=== PATIENT | male | born 1955 | race African-American/Black ===

== ENCOUNTER 2016-12-31 11:28 | Day surgery (SDC) | payer OTHER ==
[2016-12-28 16:23] VITALS: BMI 34.4
[~2016-12-31] VITALS: Ht 190.5 cm; Wt 106.0 kg
[2016-12-31] VITALS (11 sets, daily range): BP systolic 108–137; BP diastolic 71–82; PULSE 58–103; RESP 10–19; Ht 190.5 cm; Wt 106.0 kg
[~2016-12-31 11:28] MED LIST: CEFAZOLIN 2 GM/50 ML (PMX) 50 ML IVPB ONE; SOD CHLORIDE 0.9% 1,000 ML IV ONE
[2016-12-31] MEDS ORDERED: BUPIVACAINE 0.25% (MPF) 30 ML INJ ONE (13:44)
[2016-12-31] MEDS ORDERED: PROPOFOL 20 ML ONE (13:55)
[2016-12-31] MEDS ORDERED: MIDAZOLAM 1 MG/ML 2 ML INJ ONE (13:58)
[2016-12-31] MEDS ORDERED: FENTAnyl 50 MCG/ML VIAL ONE (13:58)
[2016-12-31] MEDS ORDERED: CEFAZOLIN 1 GM INJ ONE (14:00)
[2016-12-31] MEDS ORDERED: BUPIVACAINE 0.25% (MPF) 30 ML INJ INJ ONE (14:16)
--- NOTE | 2016-12-31 14:17 | RADRPT ---
PROCEDURE: XR Chest. CLINICAL INDICATION: Preoperative chest TECHNIQUE: Chest AP portable. COMPARISON: No comparison available. FINDINGS: The mediastinal structures are unremarkable. The heart is normal in size and configuration. The pu lmonary vascularity is normal. The lung toussaint are unremarkable. No consolidation is identified. The pleural spaces are unremarkable. The axial skeleton is unremarkable. IMPRESSION: No active intrathoracic disease. RPTAT: HGDB .Yuan Du MD, MD Date Time Electronically viewed and signed by .Yuan Du MD, MD on 12/31/2016 14:16 .B/
[2016-12-31] MEDS ORDERED: NEOMYC/POLYMYX/BACIT 30 GM OINT ONE (14:21)
[2016-12-31] MEDS ORDERED: ACETAMINOPHEN/CODEINE #3 TAB PO ONE (14:30)
[2016-12-31] MEDS ORDERED: MEPERIDINE 25 MG INJ IV PRN (15:00)
[2016-12-31] MEDS ORDERED: ONDANSETRON 4 MG INJ IV PRN (15:00)
[2016-12-31] MEDS ORDERED: DIPHENHYDRAMINE 50 MG INJ IV PRN (15:00)
[2016-12-31] MEDS ORDERED: METOCLOPRAMIDE 10 MG INJ IV PRN (15:00)
[2016-12-31] MEDS ORDERED: MIDAZOLAM 1 MG/ML 2 ML INJ IV PRN (15:00)
[2016-12-31] MEDS ORDERED: FENTAnyl 50 MCG/ML VIAL IV PRN ×2 (15:00)
--- NOTE | 2016-12-31 17:34 | OPR ---
DATE OF OPERATION: 12/31/2016 INDICATIONS: This is a 61-year-old male with a left thumb foreign body. He requests surgical excis ion of the foreign body. Risks, alternatives, benefits, and personnel were discussed with the patie nt. The patient expresses his understanding and consents to the operation. PREOPERATIVE DIAGNOSIS: Left thumb foreign body. POSTOPERATIVE DIAGNOSIS: Left thumb foreign body. OPERATIONS: 1. Excision of left thumb foreign body with 2 cm size incision and 1 cm size mass. 2. Localized adjacent tissue transfer with the use of skin flaps. SURGEON: Avel Barry MD SPECIMEN: Left thumb foreign body. COMPLICATIONS: None. ANESTHESIA: MAC. DESCRIPTION OF PROCEDURE: The patient was taken to the OR and prepped and draped in the usual steri le fashion. Surgical timeout was performed. IV antibiotics were given. Incision is made over the left thumb mass after local anesthesia was infiltrated transversely. Dissection cautery was carried down to the mass and circumferentially excised. There was good hemostasis. Due to tissue defect, localized adjacent tissue transfer with the use of skin flaps was performed. Closure was with inter rupted 3-0 Vicryl. Dry dressings applied. Dictated By: AVEL BARRY MD SB/DEV Conf#: [id number] DID#: [id number]
--- NOTE | 2017-01-01 14:38 | RADRPT ---
Vent Rate: 50 bpm RR Interval: 0 msec ME Interval: 146 msec QRS Duration: 86 msec QT Interval: 466 msec QTC Interval: 424 msec P-R-T Kenn[place]: 64 - -53 - -11 degrees Sinus bradycardia Left anterior fascicular block Nonspecific T wave abnormality Abnormal ECG Electronically Signed By: Papo Song [id number]
== END 2016-12-31 15:45 | disposition home or self-care (01) ==
LOC: SDS 11:28
PROVIDERS: ATTEND Surgery
DX: M79.5 Residual foreign body in soft tissue (principal)
CPT/HCPCS: 14040; 71010; 88300; 93005; J0690; J2250; J3010; Z7512; Z7610